=== PATIENT | male | born 1945 | race Caucasian/White ===

== ENCOUNTER 2016-11-11 10:02 | Day surgery (SDC) | payer MEDICARE, BC ==
[2016-11-07 11:04] LABS: HEMATOCRIT 48.2 % (40.0-51.0); HEMOGLOBIN 16.1 g/dL (13.6-17.8)
[2016-11-07 11:20] LABS: CALCIUM, SERUM 9.1 MG/DL (8.5-10.4); CHLORIDE, SERUM 104 MMOL/L (96-112); CO2 (CARBON DIOXIDE) 30 MMOL/L (24-34); CREATININE 1.42 MG/DL (0.70-1.30); GFR AFRICAN AMERICAN 57 ML/MIN (>=60); GFR NON AFRICAN AMERICAN 49 ML/MIN (>=60); GLUCOSE, SERUM 74 MG/DL (60-99); SODIUM, SERUM 142 MMOL/L (135-148)
[2016-11-07 11:25] LABS: BUN (BLOOD UREA NITROGEN) 25 MG/DL (6-23)
--- NOTE | ~2016-11-11 | OP ---
Record Of Operation [facility] [address] [place]. [address] NAME: PUMA GUTIERREZ : 43 STATUS : REG [facility] PAT#: [id number] AGE: 71 ADM/REG DATE : 11/11/16 MR#: [id number] REPORT SERV DATE: 11/11/16 DICTATED BY: CHI RADER DATE: 11/11/16 REPORT STATUS : Draft TRANSCRIBED BY: MODL DATE: 11/11/16 DATE OF PROCEDURE: 11/11/2016 POSTOPERATIVE DIAGNOSIS: Herniated nucleus polyposis, and foraminal stenosis, left L5-S1. POSTOPERATIVE DIAGNOSIS: Herniated nucleus polyposis, and foraminal stenosis, left L5-S1. PROCEDURE: 1. Microscopic and navigation assisted surgery. 2. Left L5-S1 hemilaminotomy, foraminotomy, partial facetectomy, and microdiskectomy. SURGEON: Chi Rader D.O. THRESHING MACHINE OPERATOR: Tere Vallejo. ANESTHESIA: General. ESTIMATED BLOOD LOSS: 10 mL. 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 It has been going on for several months. He has had different conservative treatments that have not helped at all. He has had lots of conservative care with time, medication, therapy, etc. After failing the usual forms of conservative care, MRI was obtained showing a disk protrusion and some foraminal stenosis. He is brought to surgery for decompression and diskectomy. Due to the above. Prior to the surgery, risks, benefits, alternatives, and expectations were explained. Consent form is signed. Today in the preop holding, the patient was identified, the patient had voiced understanding the risks, willingness to accept those, and requested to proceed with surgery. Please also note because of the complexity of the surgery, and the need to identify correct level of surgery intraoperatively, as well as the desire to carry out the safest most precise dissection, we felt the intraoperative navigation was mandatory. PROCEDURE IN DETAIL: Antibiotic prophylaxis was given. Neurophysiology monitoring leads were inserted. The patient was brought to the operative suite. General anesthetic including endotracheal intubation was administered. He was placed prone. Bony prominences were carefully padded. Thoracolumbar spine was scrubbed with Hibiclens solution. DuraPrep was painted. Sterile drapes were applied. A small stab wound was carried out at the right posterior superior iliac spine. A percutaneous pin with navigational frame was inserted in PSIS. Intraoperative CT scan with O-arm obtained, CT information used to register the navigational system. With navigational assistance, I identified L5-S1. A 2 cm skin incision was carried out. A blunt navigated probe was placed through the fascia and muscle, and docked over the Record Of Operation [facility] [id number] [place]. [address] NAME: PUMA GUTIERREZ : 43 STATUS : REG [facility] PAT#: [id number] AGE: 71 ADM/REG DATE : 11/11/16 MR#: [id number] REPORT SERV DATE: 11/11/16 DICTATED BY: CHI RADER DATE: 11/11/16 REPORT STATUS : Draft TRANSCRIBED BY: GAIL DATE: 11/11/16 interlaminar space. Muscle dilator was inserted followed by placement of a tubular retractor attached to an arm mount on the table. The microscope was sterilely draped and used throughout the remainder of the procedure. With navigational assistance, I determined the amount of lamina that I needed to remove in order to reach the cephalad boundary of the disk space to identify the exiting nerve root medially. I did also determined the location of the 50% removal of the facet joint. I used a 3 mm malissa bur, removed approximately 50% lamina of L5 and approximately 50% of medial facet joint. Interestingly, there was a disk herniation with impingement on the S1 nerve root in the paracentral location which was not previously reported. I did localize the lateral herniation in the foraminal zone and carried out a microdiskectomy in his location as well. After the diskectomy, foraminotomy, and partial facetectomy. The patient was felt to have decompressed of all the impinging problems. The wound was irrigated. The retractor was removed. Standard wound closure was carried out. The sterile dressings were applied. The patient returned to supine position, awakened, extubated, and taken to recovery room in satisfactory condition having tolerated procedure well. Sponge, needle, and instrument counts were correct. No intraoperative complications noted. /GAIL Chi Rader D.O. / [id number] CC: Meng Monique M.D.
[~2016-11-11 10:02] MED LIST: ASAB PO; C1; COREG3 PO; EFFIENT10 PO; FISH-EPA1000 MG PO; IMDUR30 PO; ISORDIL10 PO; LIPITOR80 MG PO; LOTENSIN HCT1 TA2 PO; PLAVIX PO
[2016-12-07] MEDS ORDERED: CIP5 PO (08:30)
== END 2016-11-11 16:51 | disposition home or self-care (01) ==
LOC: SDC 10:02
PROVIDERS: Orthopaedic Surgery Orthopaedic Surgery of the Spine
PROC: 0SB20ZZ Excision of Lumbar Vertebral Disc, Open Approach (ICD-10-PCS; principal; 2016-11-11 12:15)
PROC: 01NB0ZZ Release Lumbar Nerve, Open Approach (ICD-10-PCS; 2016-11-11 12:15)
DX: M51.27 Other intervertebral disc displacement, lumbosacral region (principal); M99.83 Other biomechanical lesions of lumbar region; E78.5 Hyperlipidemia, unspecified; N40.0 Benign prostatic hyperplasia without lower urinary tract symptoms; E78.00 Pure hypercholesterolemia, unspecified; M10.9 Gout, unspecified; I25.10 Atherosclerotic heart disease of native coronary artery without angina pectoris; I10 Essential (primary) hypertension; Z79.82 Long term (current) use of aspirin; Z79.899 Other long term (current) drug therapy; Z95.1 Presence of aortocoronary bypass graft; Z98.890 Other specified postprocedural states
CPT/HCPCS: 80048; 85014; 85018; 88304; 88311; 93005; J0690; J2250; J2274; J2370; J2710; J3010